=== PATIENT | female | born 1965 | race Caucasian/White ===

== ENCOUNTER → 2020-03-24 | Outpatient (CLI) | payer BC, OTHER, SELFPAY ==
[~2020-03-24] MED LIST: BUPR50TA PO; BUSP5TA PO; IBUP-1114 PO; LEXA1TAB2 PO; OMEP40CA97 PO
== END ==
LOC: M LABSMTC 13:36
PROVIDERS: ATTEND Anesthesiology
DX: Z01.818 Encounter for other preprocedural examination (principal); Z11.59 Encounter for screening for other viral diseases

== ENCOUNTER 2020-03-26 12:58 | Day surgery (SDC) | payer BC ==
[~2020-03-26] VITALS: Ht 162.6 cm; Wt 64.9 kg
[~2020-03-26 12:58] MED LIST changes: +LIDOCAINE 1% MDV 20ML VIAL SQ PRN; +LR 1,000 ML IV ONE; +ceFAZolin SOD 2 GM in IV 1 EA IV ONE
[2020-03-26] MEDS ORDERED: fentaNYL 250 MCG/5 ML INJECTION (J3010) As Ordered ONE (13:54)
[2020-03-26] MEDS ORDERED: dexameTHASONE 4 MG/ML 1ML VIAL (J1100 PER 1MG) As Ordered ONE (13:55)
[2020-03-26] MEDS ORDERED: MIDAZOLAM INJ 2MG/2ML VIAL (J2250 PER 1MG) As Ordered ONE (13:55)
[2020-03-26] MEDS ORDERED: LIDOCAINE 2% 100MG/5ML SDV (FOR ANES.) As Ordered ONE (13:55)
[2020-03-26] MEDS ORDERED: ONDANSETRON 4MG/2ML VIAL As Ordered ONE ×2 (13:55→17:18)
[2020-03-26] MEDS ORDERED: propofoL 200 MG/20 ML VIAL As Ordered ONE (13:55)
[2020-03-26] MEDS ORDERED: ACETAMINOPHEN 1000MG 100ML IV BTL (OFIRMEV) (J0131 PER 10MG) As Ordered ONE (15:32)
[2020-03-26] MEDS ORDERED: HYDROmorphone HCL 2 MG/ML 1ML VIAL (J1170) As Ordered ONE (15:35)
[2020-03-26] MEDS ORDERED: ePHEDrine SULFATE 25 MG/5 ML(5MG/ML) SYRINGE As Ordered ONE (15:53)
[2020-03-26] MEDS ORDERED: BUPIVACAINE/EPIN 0.25% 30 ML VIAL As Ordered ONE (16:46)
[2020-03-26] MEDS ORDERED: HYDROMORPHONE HCL 0.5 MG/ 0.5 ML SYRINGE (J1170 PER 1) As Ordered ONE (17:17)
[2020-03-26] MEDS ORDERED: fentaNYL 100 MCG/2 ML INJECTION (J3010) As Ordered ONE (17:17)
[2020-03-26] MEDS ORDERED: oxyCODONE 5MG TAB As Ordered ONE (17:17)
[2020-03-26] MEDS: HYDROMORPHONE HCL 0.5 MG/ 0.5 ML SYRINGE (J1170 PER 1) IV PRN ×4 (17:20→17:35)
[2020-03-26] MEDS: oxyCODONE 5MG TAB PO PRN ×2 (17:20→17:57)
[2020-03-26] MEDS ORDERED: ONDANSETRON 4MG/2ML VIAL IV PRN ×2 (17:30)
[2020-03-26] MEDS ORDERED: LR 1,000 ML IV SCH ×2 (17:30)
[2020-03-26] MEDS ORDERED: MORPHINE 2 MG/ML 1ML VIAL (J2270) IV PRN (17:30)
[2020-03-26] MEDS ORDERED: ACETAMINOPHEN TAB 650MG DOSE (2X325MG) PO PRN (17:30)
[2020-03-26] MEDS ORDERED: PERCOCET 5MG/325MG TAB PO PRN (17:30)
[2020-03-26] MEDS: fentaNYL 100 MCG/2 ML INJECTION (J3010) IV PRN ×4 (18:00→18:15)
[2020-03-26 19:30] VITALS: BP 115/67
--- NOTE | 2020-03-26 19:42 | ECGEPIP ---
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
--- NOTE | 2020-03-26 22:49 | REP ---
RIGHT ELBOW, TWO VIEWS: HISTORY: Radial head fracture. Intraoperative imaging. 7 seconds of fluoroscopy time is reported. FINDINGS: A sequence of two last image hold fluoroscopically obtained spot radiographs of the right elbow document right radial head replacement with prosthesis. Electronically Signed by Josef Mills MD 03/27/2020 07:44 A
--- NOTE | 2020-03-28 11:43 | RO ---
DATE OF PROCEDURE: 03/26/2020 PREOPERATIVE DIAGNOSIS: Right radial head fracture. POSTOPERATIVE DIAGNOSIS: Right radial head fracture. PLANNED PROCEDURE: Right radial head open reduction, internal fixation, possible fragment excision versus arthroplasty. PROCEDURE PERFORMED: Right radial head arthroplasty. SURGEON: Cheko Glover MD FIELD SERVICE TECHNICIAN POULTRY: MALACHI Sylvester BUILDING ENERGY RETROFIT TECHNICIAN: Dr. Victoria ANESTHESIA: General anesthetic. OPERATIVE PREAMBLE: This 54-year-old female sustained a comminuted right radial head fracture block to motion. Talked about the pros and cons, the risks and benefits of nonoperative care versus surgical repair or fragment excision, as well as possible arthroplasty of the right radial head. I reiterated the risks in preoperative holding, marked her right upper extremity, and proceeded to surgery. DESCRIPTION OF PROCEDURE: The patient was brought to the operating theater, administered general anesthetic. She was placed supine on the operating room table. 2 grams of IV Ancef was administered prior to the start of the case. Arm table was used at the patient's right side. All bony prominences were padded. Sequential compression devices (SCDs) were used on the down legs. Arm table was used at the patient's right side. 18-inch tourniquet was applied to the right upper extremity, appropriately padded. The right upper extremity was prepped and draped in the usual sterile fashion, allowing over 3 minutes prep solution drying time. Preoperative time-out was performed to confirm the site, the patient, and surgery. I exsanguinated the limb with a sterile Esmarch bandage, followed by inflation of the tourniquet to 250 mmHg for approximately 60 minutes throughout the duration of the case; it was taken down at the end of the case. I made a standard lateral incision at the elbow, centered just anteriorly to the lateral epicondyle, curving this down distally over the extensor digitorum communis (EDC) muscle belly. I carried dissection down through skin and subcutaneous tissue, achieving meticulous hemostasis. I split the EDC muscle in line with the fibers in its midline, staying well anteriorly to the equator of the radius as to not injure the lateral ulnar collateral ligament (LUCL). I performed a longitudinal capsulotomy, incised the proximal fibers of the annular ligament to gain access to the joint surface. There was a comminuted radial head fracture consisting of two pieces. There were fragmented pieces involving more than 50% of the joint surface. As such, an excision was inappropriate and fixation was impossible. The posterior fragment was definitely displaced and blocking of the joint. As such, it was elected to go ahead with radial head arthroplasty. I used a micro sagittal saw to perform the radial neck cut. Radial head was removed, as well as the two other fragments from the joint. There was also one small fragment that showed up on intraoperative x-rays just anteriorly that I managed to irrigate out underneath the anterior capsule. I sized the radial head on the back table. I used the Biomet XploR modular radial head system with screw. I broached the canal up to a size 7; this achieved good tight fit. I then trialed with a size 7 stem and a 10 mm height x 22 mm modular radial head. This was appropriately sized. No overstuffing and no medial gapping. It appeared appropriate on AP and lateral radiographs. Then, full range of motion on flexion, extension, supination, and pronation with no instability of the joint. As such, these were the final components selected. I inserted the Biomet modular radial stem, size 7 mm (26 mm length), and then also inserted the modular radial head 10 mm height (22 mm) and then fully inserted the set screw to good tightness. Again, trialing was performed, and it was stable with full range of motion. Joint was again thoroughly irrigated. Final radiographs were taken and saved onto the system. Muscular split was then closed with a running #3-0 Vicryl suture, both deep and superficial. Subcutaneous tissue was closed with interrupted #2-0 Vicryl sutures and the skin with running #3-0 Monocryl. 10 mL of 0.25% Marcaine with 1:100,000 epinephrine was instilled in and around incision. Skin was cleaned with wet and dry dressing followed by application of Steri-Strips, Adaptic, 4 x 8 gauze, ABD dressing, and then overwrapped with sterile cast padding in above-elbow fashion. Posterior back slab was fashioned with plaster of Mesha and overwrapped with 6-inch August bandage with the forearm in neutral at 90 degrees flexion. The patient's upper extremity was placed into a sling. She was transferred off the operating table and taken to postanesthetic care unit in stable condition. All sponge counts, needle counts, and instrument counts were correct. No complications. Estimated blood loss 50 mL. PLAN FOR THE PATIENT: Discharge home according to day surgery criteria and followup in the office in 2 weeks' time. Prescription will be sent into her pharmacy of choice.
== END 2020-03-26 20:00 | disposition home or self-care (01) ==
LOC: M SDC 12:58
PROVIDERS: ATTEND Orthopaedic Surgery Sports Medicine
DX: S52.121A Displaced fracture of head of right radius, initial encounter for closed fracture (principal); X58.XXXA Exposure to other specified factors, initial encounter; Y92.89 Other specified places as the place of occurrence of the external cause; Y93.9 Activity, unspecified; Y99.9 Unspecified external cause status; K21.9 Gastro-esophageal reflux disease without esophagitis; F41.9 Anxiety disorder, unspecified; F32.9 Major depressive disorder, single episode, unspecified; Z79.899 Other long term (current) drug therapy
CPT/HCPCS: 24666; 76000; 88304; 88311; 93005; C1776; J0131; J0690; J1100; J1170; J2250; J2405; J3010

== ENCOUNTER 2023-10-05 09:04 | Day surgery (SDC) | payer BC ==
[~2023-10-05] VITALS: Ht 162.6 cm; Wt 64.8 kg
[~2023-10-05 09:04] MED LIST changes: +BUPR-69 PO; -BUPR50TA PO; -LIDOCAINE 1% MDV 20ML VIAL SQ PRN; +LIDOCAINE 2% 100MG/5ML SDV (FOR ANES.) As Ordered ONE; -LR 1,000 ML IV ONE; +NS 1,000 ML IV ONE; +OMEP40CA4 PO; -OMEP40CA97 PO; -ceFAZolin SOD 2 GM in IV 1 EA IV ONE; +propofoL 200 MG/20 ML VIAL As Ordered ONE
[2023-10-05 10:18] VITALS: TEMP 98
[2023-10-05 10:38] VITALS: BP 125/90; O2SAT 98
[2023-10-05] MEDS ORDERED: KETOROLAC 60MG 2ML VIAL As Ordered ONE (11:03)
[2023-10-05] MEDS ORDERED: ROCURONIUM BROMIDE 50MG/5ML VIAL As Ordered ONE (11:03)
[2023-10-05] MEDS ORDERED: SUGAMMADEX SODIUM 500 MG/5 ML VIAL (BRIDION) As Ordered ONE (11:03)
[2023-10-05] MEDS ORDERED: propofoL 200 MG/20 ML VIAL As Ordered ONE (11:03)
[2023-10-05] MEDS ORDERED: ONDANSETRON 4MG 2ML VIAL As Ordered ONE (11:03)
[2023-10-05] MEDS ORDERED: LIDOCAINE 2% 100MG/5ML SDV (FOR ANES.) As Ordered ONE (11:03)
[2023-10-05] MEDS ORDERED: fentaNYL 100 MCG/2 ML INJECTION As Ordered ONE (11:04)
[2023-10-05] MEDS ORDERED: MIDAZOLAM INJ 2MG/2ML VIAL As Ordered ONE (11:04)
== END 2023-10-05 10:51 | disposition home or self-care (01) ==
LOC: M OPP 09:04
PROVIDERS: ATTEND Internal Medicine Gastroenterology
DX: Z12.11 Encounter for screening for malignant neoplasm of colon (principal); K63.5 Polyp of colon; K57.30 Diverticulosis of large intestine without perforation or abscess without bleeding; K64.4 Residual hemorrhoidal skin tags; K64.8 Other hemorrhoids; Z79.83 Long term (current) use of bisphosphonates; Z79.899 Other long term (current) drug therapy

== ENCOUNTER → 2025-04-16 | Outpatient (CLI) | payer BC ==
[~2025-04-16] MED LIST changes: +LEXA1TAB; -LIDOCAINE 2% 100MG/5ML SDV (FOR ANES.) As Ordered ONE; -NS 1,000 ML IV ONE; +VENL75CA47 PO; -propofoL 200 MG/20 ML VIAL As Ordered ONE
== END ==
LOC: M ONCR 14:14
PROVIDERS: ATTEND General Practice
DX: C50.411 Malignant neoplasm of upper-outer quadrant of right female breast (principal); C50.412 Malignant neoplasm of upper-outer quadrant of left female breast; R23.2 Flushing; Z80.42 Family history of malignant neoplasm of prostate; Z80.49 Family history of malignant neoplasm of other genital organs; Z79.899 Other long term (current) drug therapy

== ENCOUNTER 2025-06-10 15:15 | Outpatient (RCR) | payer BC ==
[~2025-06-10 15:15] MED LIST changes: +CLAR10CA3 PO; +FLUTISP
== END 2025-06-26 ==
LOC: M ONCR 15:15
PROVIDERS: ATTEND General Practice
DX: Z51.0 Encounter for antineoplastic radiation therapy (principal); C50.412 Malignant neoplasm of upper-outer quadrant of left female breast

== ENCOUNTER → 2025-09-29 | Outpatient (CLI) | payer BC ==
[~2025-09-29] MED LIST changes: +ANAS1TAB2 PO; +ATOR1TAB19 PO
== END ==
LOC: M PLARAD 13:15
PROVIDERS: ATTEND Student in an Organized Health Care Education/Training Program
DX: C50.811 Malignant neoplasm of overlapping sites of right female breast (principal)
CPT/HCPCS: 78816; A9552